=== PATIENT | female | born 1945 | race Caucasian/White ===

== ENCOUNTER 2017-07-09 22:10 | Emergency (ER) | payer MEDICARE, OTHER ==
[~2017-07-09] VITALS: Ht 170.2 cm; Wt 112.9 kg
[~2017-07-09 22:10] MED LIST: AMBIEN CR12.5 MG PO; BENICAR20 MG PO; BUMETANIDE2 MG PO; BUMEX2 MG PO; CARAFATE1 GM/10 ML PO; CYCLOBENZAPRINE5 MG PO; DEXILANT60 MG PO; FLAGYL250 MG PO; K-DUR20 ME2 PO; LIDOCAINE1 EA; LIPITOR40 MG PO; LOPRESSOR25 MG PO; METOPROLOL TART50 MG PO; NEXIUM20 MG PO; NIFEDIPINE ER60 M1 PO; NITROGLYCERIN0.4 MG SL; NORCO 10MG-325MG1 EA PO; PHENERGAN SUPP25 MG PO; POTASSIUM CHLO20 ME1 PO; PRAVASTATIN SOD20 MG PO; PRAVASTATIN SOD40 MG PO; PROMETHAZINE HC25 M1 PO; REGLAN10 MG PO; SERTRALINE HCL100 MG PO; SOMA350 MG PO; TESSALON PERLE100 MG PO; TUSSIN100 MG/51 PO; TUSSINEX PO; ULTRAM50 MG PO; XANAX2 MG PO; Z EXFORGE PO; Z.0.CLONIDINE HCL0.3 PO; Z.0.NORCO 5-325 TA1 PO; Z.0.ZOLOFT100 MG PO; ZOLOFT100 MG PO; ZOLPIDEM TART6.25 MG; [UNRECOGNIZED DRUG - OTHER] PO; [UNRECOGNIZED DRUG - OTHER] PO; zanax
--- OUTSIDE RECORDS SUMMARY | 2017-07-09 22:12 | XMS REPORT ---
Author Author [facility] Address Unknown Phone Unavailable Care Team Providers Care Eap Counselor Name Role Phone STELLA COSTA Unavailable Unavailable Problems This patient has no known problems. Allergies, Adverse Reactions, Alerts This patient has no known allergies or adverse reactions. Medications This patient has no known medications. Results Test Description Test Time Test Comments Text Results Atomic Results Result Comments CHEST XRAY POST PROCEDURE [place] [id number] Patient Name: IVAN KENDALL MR #: [id number] : 1945 Age/Sex: 71/F Req #: [id number] [facility] Physician: Ordered by: NURY PEREZ MD Report #: [id number] Location: CT Room/Bed: Procedure: DX/CHEST XRAY POST PROCEDURE Exam Date: Exam Time: REPORT STATUS: Signed PROCEDURE: CHEST XRAY POST PROCEDURE COMPARISON: Same day at 11:07 am INDICATIONS: POST THORA FINDINGS: Stable left chest wall dual lead cardiac device. LUNGS: Limited by low lung volumes and slight rotation. Left mid lung atelectasis/ scaring unchanged. Slightly increased right lower lung field atelectasis. Possible trace right pleural effusion PLEURA: No significant effusions or pneumothorax. HEART T MEDIASTINUM: Enlarged by rotation and low lung volume. BONES T SOFT TISSUES: No acute findings. CONCLUSION: No visible pneumothorax. Slightly increased right lower lung field atelectasis. Dictated by: Moose Carrillo M.D. on 11/13/2016 at 14:10 Electronically approved by: Moose Carrillo M.D. on 11/13/2016 at 14:10 Dictated By: MOOSE CARRILLO MD 141 Transcribed By: NEL on 11/13/16 141 COPY TO: NURY PEREZ MD CHEST XRAY POST PROCEDURE [place] [address] Patient Name: IVAN KENDALL MR #: [id number] : 1945 Age/Sex: 71/F Req #: [id number] Adm Physician: Ordered by: NURY PEREZ MD Report #: [id number] Location: CT Room/Bed: Procedure: [id number] DX/CHEST XRAY POST PROCEDURE Exam Date: Exam Time: REPORT STATUS: Signed PROCEDURE: CHEST XRAY POST PROCEDURE COMPARISON: 09/30/2016 INDICATIONS: POST LUNG BIOPSY FINDINGS: Stable left chest wall dual lead cardiac device. LUNGS: Limited by low lung volumes and rotation. Left mid lung atelectasis/scaring unchanged. Minimal left basilar haziness, likely a small effusion or atelectasis. PLEURA: No significant effusions or pneumothorax. HEART T MEDIASTINUM: Enlarged by rotation and low lung volume. BONES T SOFT TISSUES: No acute findings. CONCLUSION: Status post lung biopsy. No visible pneumothorax. Dictated by: Moose Carrillo M.D. on 11/13/2016 at 11:58 Electronically approved by: Moose Carrillo M.D. on 11/13/2016 at 11:58 Dictated By: MOOSE CARRILLO MD 1158 Transcribed By: NEL on 11/13/16 1158 COPY TO: NURY PEREZ MD CT GUIDED BIOPSY/ASPIR/INJ/PURNIMA [place] [address] Patient Name: IVAN KENDALL MR #: [id number] : 1945 Age/Sex: 71/F Req #: [id number] [facility] Physician: Ordered by: STELLA COSTA MD Report #: [id number] Location: CT Room/Bed: Procedure: [id number] CT/CT GUIDED BIOPSY/ASPIR/INJ/PURNIMA Exam Date: 11/13/16 Exam Time: 1025 REPORT STATUS: Signed Date and Time: 11/13/2016 Procedure: CT-guided biopsy of left upper lobe nodule tuber machine operator: Dr. Perez Pre-operative diagnosis: Left upper lobe paramediastinal pulmonary nodule Post-operative diagnosis: Left upper lobe paramediastinal pulmonary nodule Conscious Sedation: Versed 0.5 mg. The patient's heart rate and pulse oximetry were continuously monitored by the interventional radiology nurse. Blood pressure was monitored at 5 minute intervals. Additional Medications: Lidocaine 1% for local anesthesia Fluoroscopy time: None DLP: 1856.83 mGy cm Contrast used: None Estimated blood loss: Minimal Specimens: Core biopsy specimens x5 Implants: None Complications: Small iatrogenic pneumothorax Blood products administered: None Condition at completion of procedure: Stable Disposition: Radiology holding area DISCUSSION: Informed consent for the procedure was obtained from the patient and documented in the medical record after discussion of risks and benefits. The patient was placed in the supine position on the CT couch. A marker grid was placed over the left upper chest. Cnc Service Engineer tomogram followed by limited CT of the chest confirmed a suitable percutaneous approach to the paramediastinal left upper lobe nodule. The overlying skin was marked then prepped and draped in standard sterile fashion. 1% lidocaine was infiltrated into the skin and subcutaneous tissues for local anesthesia. Then, under intermittent CT guidance, a 16- gauge needle guide was advanced to the periphery of the nodule. Subsequently, a total of 5 core biopsy specimens were obtained using an 18-gauge, 2 cm throw core biopsy apparatus. A specimen was submitted to cytopathology personnel for touch prep, and intralesional location was confirmed. At the conclusion of sampling the needle guide was removed with concomitant injection of Gelfoam slurry along the visceral pleural surface of the lung and within the biopsy tract. A sterile, occlusive dressing was applied. The patient tolerated the procedure well. A small iatrogenic pneumothorax was noted upon completion of the procedure. The patient remained hemodynamically stable and with adequate oxygen saturation throughout the procedure and in the immediate post procedure period. FINDINGS: Paramediastinal left lung nodule as described on comparison CT scan of the chest from October 06, 2016 IMPRESSION: Successful CT-guided core needle biopsy of a paramediastinal left upper lobe nodule. Small iatrogenic pneumothorax will be followed by serial chest radiographs. Signed by: Dr. Nury Perez M.D. on 11/13/2016 1:01 PM Dictated By: NURY PEREZ MD 1301 Transcribed By: ELVIRA on 11/13/16 1301 COPY TO: STELLA COSTA MD BIOPSY LUNG [place] [address] Patient Name: IVAN KENDALL MR #: [id number] : 1945 Age/Sex: 71/F Req #: [id number] Adm Physician: Ordered by: STELLA COSTA MD Report #: [id number] Location: CT Room/Bed: Procedure: [id number] IR/BIOPSY LUNG Exam Date: 11/13/16 Exam Time: 1025 REPORT STATUS: Signed Date and Time: 11/13/2016 Procedure: CT-guided biopsy of left upper lobe nodule tuber machine operator: Dr. Perez Pre-operative diagnosis: Left upper lobe paramediastinal pulmonary nodule Post-operative diagnosis: Left upper lobe paramediastinal pulmonary nodule Conscious Sedation: Versed 0.5 mg. The patient's heart rate and pulse oximetry were continuously monitored by the interventional radiology nurse. Blood pressure was monitored at 5 minute intervals. Additional Medications: Lidocaine 1% for local anesthesia Fluoroscopy time: None DLP: 1856.83 mGy cm Contrast used: None Estimated blood loss: Minimal Specimens: Core biopsy specimens x5 Implants: None Complications: Small iatrogenic pneumothorax Blood products administered: None Condition at completion of procedure: Stable Disposition: Radiology holding area DISCUSSION: Informed consent for the procedure was obtained from the patient and documented in the medical record after discussion of risks and benefits. The patient was placed in the supine position on the CT couch. A marker grid was placed over the left upper chest. Cnc Service Engineer tomogram followed by limited CT of the chest confirmed a suitable percutaneous approach to the paramediastinal left upper lobe nodule. The overlying skin was marked then prepped and draped in standard sterile fashion. 1% lidocaine was infiltrated into the skin and subcutaneous tissues for local anesthesia. Then , under intermittent CT guidance, a 16-gauge needle guide was advanced to the periphery of the nodule. Subsequently, a total of 5 core biopsy specimens were obtained using an 18-gauge, 2 cm throw core biopsy apparatus. A specimen was submitted to cytopathology personnel for touch prep, and intralesional location was confirmed. At the conclusion of sampling the needle guide was removed with concomitant injection of Gelfoam slurry along the visceral pleural surface of the lung and within the biopsy tract. A sterile, occlusive dressing was applied. The patient tolerated the procedure well. A small iatrogenic pneumothorax was noted upon completion of the procedure. The patient remained hemodynamically stable and with adequate oxygen saturation throughout the procedure and in the immediate post procedure period. FINDINGS: Paramediastinal left lung nodule as described on comparison CT scan of the chest from October 06, 2016 IMPRESSION: Successful CT- guided core needle biopsy of a paramediastinal left upper lobe nodule. Small iatrogenic pneumothorax will be followed by serial chest radiographs. Signed by: Dr. Nury Perez M.D. on 11/13/2016 1:01 PM Dictated By: NURY PEREZ MD 1301 Transcribed By: ELVIRA on 11/13/16 1301 COPY TO: STELLA COSTA MD
[2017-07-09 22:50] LABS: BASOPHILS % 0.4 % (0.0-1.0); EOSINOPHILS % 0.4 % (0.0-6.0); HEMATOCRIT 45.3 % (34.2-44.1); HEMOGLOBIN 14.7 g/dL (12.0-16.0); LYMPHOCYTES % 9.9 % (18.0-39.1); MEAN CORPUSCULAR HEMOGLOBIN 28.2 pg (28-32); MEAN CORPUSCULAR HGB CONC 32.5 g/dL (31-35); MEAN CORPUSCULAR VOLUME 86.8 fL (81-99); MONOCYTES # (AUTO) 0.6 (0.2-0.8); MONOCYTES % 6.4 % (4.4-11.3); NEUTROPHILS # (AUTO) 8.1 (2.1-6.9); NEUTROPHILS % 82.3 % (38.7-80.0); PLATELET COUNT 231 x10e3/uL (140-360); RED BLOOD COUNT 5.22 x10e6/uL (3.6-5.1); RED CELL DISTRIBUTION WIDTH 14.4 % (11.7-14.4)
[2017-07-09 22:57] LABS: CLARITY,URINE HAZY (CLEAR); COLOR,URINE ORANGE (YELLOW); KETONES,URINE 1+ (NEGATIVE); LEUKOCYTE ESTERASE ,URINE 2+ (NEGATIVE); NITRITE,URINE POSITIVE (NEGATIVE); PROTEIN,URINE DIPSTICK 2+ (NEGATIVE); URINE UROBILINOGEN 4 mg/dL (0.2 - 1)
[2017-07-09 22:58] LABS: BILIRUBIN,URINE 2+ (NEGATIVE)
[2017-07-09 23:02] LABS: INR 1.08; PROTHROMBIN TIME 13.2 seconds (11.9-14.5)
[2017-07-09 23:03] LABS: PARTIAL THROMBOPLASTIN TIME 37.7 seconds (23.8-35.5)
[2017-07-09 23:10] LABS: BACTERIA,URINE RARE /HPF; EPITHELIAL CELLS,URINE FEW /LPF; TRANSITIONAL EPI CELLS,URINE RARE; WBC,URINE (MAN) 0-5 /HPF (0-5)
[2017-07-09 23:13] LABS: ALANINE AMINOTRANSFERASE 16 IU/L (0-55); ALBUMIN 3.4 g/dL (3.5-5.0); ALBUMIN/GLOBULIN RATIO 0.8 (0.8-2.0); ALKALINE PHOSPHATASE 73 IU/L (40-150); ANION GAP 14.5 mmol/L (8-16); BLOOD UREA NITROGEN 12 mg/dL (7-26); BUN/CREATININE RATIO 16 (6-25); CALCIUM 9.5 mg/dL (8.4-10.2); CARBON DIOXIDE 26 mmol/L (22-29); CHLORIDE 104 mmol/L (98-107); CREATINE KINASE 361 IU/L (29-168); CREATININE, SERUM 0.77 mg/dL (0.57-1.11); EST GLOMERULAR FILTRATION RATE > 60 ML/MIN (60-); GLUCOSE 96 mg/dL (74-118); MAGNESIUM 1.8 MG/DL (1.3-2.1); POTASSIUM 3.5 mmol/L (3.5-5.1); SODIUM 141 mmol/L (136-145)
[2017-07-09 23:19] LABS: B-TYPE NATRIURETIC PEPTIDE2 20.7 pg/mL (0-100)
--- NOTE | 2017-07-10 00:16 | Diagnostic Imaging Report ---
EXAM: CHEST SINGLE (PORTABLE), AP 1 view INDICATION: Shortness of breath COMPARISON: AP view of the chest at May 13, 2016 FINDINGS: LINES/TUBES: Stable position of left approach cardiac device. LUNGS: Stable bibasilar atelectasis/scarring. Lung nodules better seen by CT. PLEURA: No effusions or pneumothorax. HEART AND MEDIASTINUM: Normal size and contour. BONES AND SOFT TISSUES: No acute findings. IMPRESSION: No acute thoracic abnormality. Signed by: Dr. Jyotih Grant M.D. on 07/10/2017 12:12 AM
[2017-07-10] MEDS ORDERED: AZITHROMYCIN 500MG/NS 250 ML 250 ML IV SCH (00:30)
[2017-07-10] MEDS ORDERED: CEFTRIAXONE SOD 1 GM VIAL IV SCH (01:00)
[2017-07-10] MEDS ORDERED: METHYLPREDNISOLONE SOD SUCC 125 MG/2ML VIAL IV STA (01:33)
== END 2017-07-10 02:57 | disposition home or self-care (01) ==
LOC: ER 22:10
DX: R50.9 Fever, unspecified (principal); R05 Cough; J20.9 Acute bronchitis, unspecified; I51.9 Heart disease, unspecified; J44.9 Chronic obstructive pulmonary disease, unspecified; Z99.81 Dependence on supplemental oxygen; Z85.118 Personal history of other malignant neoplasm of bronchus and lung
CPT/HCPCS: 36415; 51700; 71045; 80053; 81001; 82550; 82553; 83605; 83735; 83880; 84484; 85025; 85610; 85730; 87040; 87071; 87086; 87205; 93005; 99284; J0456; J0696; J2930

== ENCOUNTER 2017-08-30 11:48 | Observation (INO) | payer MEDICARE ==
[~2017-08-30] VITALS: Ht 170.2 cm; Wt 83.9 kg
--- NOTE | 2017-08-30 13:40 | Diagnostic Imaging Report ---
History:Fall Comparison studies: None Technique: Axial images were obtained from the skull base to the vertex. Coronal and sagittal images reconstructed from the axial data. Intravenous contrast: None Findings: Scalp/skull: No abnormalities. Extra-axial spaces: No masses. No fluid collections. Brain sulci: Mildly prominent. Ventricles: Mild compensatory dilatation. No hydrocephalus. Parenchyma: Ill-defined, confluent hypodensities in the supratentorial white matter are small vessel ischemic changes. No masses, hemorrhage, acute or chronic cortical vascular insults. Sellar/suprasellar region: No abnormalities. Craniocervical junction: Patent foramen magnum. No Chiari one malformation. Incidental findings: Subtle atherosclerotic calcifications in the carotid siphons . Impression: No acute abnormalities. Chronic findings: 1. Mild generalized volume loss. 2. Moderate supratentorial white matter small vessel ischemic changes. Signed by: Dr. Otis Marques M.D. on 08/30/2017 1:36 PM
--- NOTE | 2017-08-30 13:41 | Diagnostic Imaging Report ---
PELVIS - 1 VIEW HISTORY: Fall, rule out fracture COMPARISON: None available. FINDINGS: A single view partially limits the evaluation. Bones: Some of the osseous structures are partially obscured by stool and overlying bowel gas. No acute displaced fracture, within the stated limitations. Joints: Minimal scattered degenerative changes. Soft tissues: The soft tissues appear unremarkable. IMPRESSION: No acute radiographic abnormality. Signed by: Dr. Agapito Bernard D.O., M.M.M. on 08/30/2017 1:37 PM
--- NOTE | 2017-08-30 13:42 | Diagnostic Imaging Report ---
History: Fall Comparison studies: None Technique: Axial images were obtained through the cervical region.. Coronal and sagittal images reconstructed from the axial data.. Intravenous contrast: None Findings: Fractures: None. Soft tissues: No gross abnormalities. Atlantoaxial articulation: Intact. Alignment: Straightening of the usual lordosis is probably positional. No scoliosis. Cervicomedullary junction: No abnormalities. The foramen magnum is patent. Vertebrae: No infection or neoplasm. Degenerative changes: Mild at the atlantoaxial articulation. Mildly degenerated disks at C4-5 and C5-6. Patent foramina and spinal canal. Incidental partially visualized left subclavian catheter. IMPRESSION: 1. No acute abnormalities. 2. Cannot adequately evaluate for ligament, spinal cord and or vascular abnormalities. 3. Mild degenerative changes Signed by: Dr. Otis Marques M.D. on 08/30/2017 1:39 PM
--- NOTE | 2017-08-30 13:56 | Diagnostic Imaging Report ---
CT CHEST WITHOUT CONTRAST HISTORY: fall, right side, strike right posterior ribs on bath tub, R/o fx COMPARISON: Images from CT of the chest October 01, 2016. TECHNIQUE: CT scan of the chest WITHOUT intravenous contrast, using standard protocol. The chest was scanned utilizing a multidetector helical scanner from the apex to the level of the adrenal glands. Coronal and sagittal reformats are provided. IV CONTRAST: None, which limits evaluation of the vascular structures, mediastinum and soft tissues. RADIATION DOSE: Total DLP: 1605.65 mGy*cm COMPLICATIONS: None FINDINGS: Lines/tubes: A left-sided implanted cardiac device. Lungs and Airways: Minimal to mild bilateral paraseptal and centrilobular emphysema. Bibasilar atelectasis versus scarring. Left mid anterior left upper lobe bronchiectasis with adjacent confluence anterior airspace opacity. Pleura: The pleural spaces are clear. Heart and mediastinum: A partially visualized inferior thyroid nodule, in retrospect the visualized portions appear similar to September 2016. Abdomen: Limited nonenhanced views of the upper abdomen: Stable 1.5 cm left hepatic fluid density, compatible with a cyst. Lymph nodes: No pathologically enlarged lymph node identified. Vessels: Unremarkable. Bones: Multiple posterior right rib fractures, a nondisplaced eighth rib fracture, one shaft width displacement of a posterior ninth rib fracture, a segmental 10th rib fracture and mildly displaced 11th rib fracture. Soft tissues: Mild anterior wedge compression deformity of L1 along with vertebral augmentation radiopaque cement and vertebral augmentation radial opaque cement within the adjacent L2 vertebral body. IMPRESSION: 1. Multiple posterior right-sided rib fractures, involving the 8th through 11th ribs. 2. Status post vertebral augmentation at L1 and L2. 3. Partially visualized thyroid nodule, this may be further characterize via follow-up nonemergent thyroid ultrasound. 4. Nonspecific left midlung bronchiectasis and complex fluid airspace opacity, differential considerations include postsurgical changes, scarring, and infection in the appropriate setting. If the patient is at high risk for primary malignancy or metastatic disease, recommend a follow-up CT of the chest in 3 months to assess for stability. Signed by: Dr. Agapito Bernard D.O., M.M.M. on 08/30/2017 1:52 PM
[2017-08-30] MEDS ORDERED: FENTANYL CITRATE/PF 100MCG/2 ML INJ IV ONE (14:00)
[2017-08-30] MEDS ORDERED: FENTANYL CITRATE/PF 100MCG/2 ML INJ IV PRN (14:30)
[2017-08-30 14:53] LABS: BASOPHILS # (AUTO) 0.1 (0.0-0.1); BASOPHILS % 0.4 % (0.0-1.0); EOSINOPHILS % 0.1 % (0.0-6.0); HEMATOCRIT 47.3 % (34.2-44.1); HEMOGLOBIN 15.6 g/dL (12.0-16.0); MEAN CORPUSCULAR HEMOGLOBIN 28.4 pg (28-32); MONOCYTES # (AUTO) 0.7 (0.2-0.8); MONOCYTES % 4.4 % (4.4-11.3); NEUTROPHILS % 88.4 % (38.7-80.0); PLATELET COUNT 269 x10e3/uL (140-360)
[2017-08-30 14:57] LABS: INR 1.05; PROTHROMBIN TIME 12.9 seconds (11.9-14.5)
[2017-08-30 14:58] LABS: PARTIAL THROMBOPLASTIN TIME 29.2 seconds (23.8-35.5)
[2017-08-30] MEDS: NICOTINE 14 MG/EA PATCH TOP SCH ×2 (15:00→16:58)
[2017-08-30 15:06] LABS: ALANINE AMINOTRANSFERASE 57 IU/L (0-55); ALBUMIN 3.8 g/dL (3.5-5.0); ALKALINE PHOSPHATASE 76 IU/L (40-150); ANION GAP 16.8 mmol/L (8-16); BLOOD UREA NITROGEN 13 mg/dL (7-26); BUN/CREATININE RATIO 18 (6-25); CALCIUM 9.2 mg/dL (8.4-10.2); CARBON DIOXIDE 24 mmol/L (22-29); CHLORIDE 104 mmol/L (98-107); CREATININE, SERUM 0.74 mg/dL (0.57-1.11); EST GLOMERULAR FILTRATION RATE > 60 ML/MIN (60-); GLUCOSE 120 mg/dL (74-118); POTASSIUM 3.8 mmol/L (3.5-5.1); SODIUM 141 mmol/L (136-145)
[2017-08-30] MEDS ORDERED: HYDROMORPHONE 1MG/1ML INJ IV PRN (15:30)
[2017-08-30 16:00] LABS: CREATINE KINASE MB 1.8 ng/mL (0-5.0)
[2017-08-30] MEDS ORDERED: HYDROCODONE/APAP 10MG-325MG TAB PO PRN (16:00)
[2017-08-30] MEDS ORDERED: TRAMADOL HCL 50 MG TAB PO PRN (16:00)
[2017-08-30] MEDS ORDERED: AZITHROMYCIN 500MG/NS 250 ML 250 ML IV SCH (16:00)
[2017-08-30] MEDS ORDERED: ZOLPIDEM TARTRATE 10 MG TAB PO PRN (16:00)
[2017-08-30 16:09] VITALS: BP 133/68
[2017-08-30] MEDS ORDERED: ALPRAZOLAM 1 MG TAB PO PRN (16:15)
[2017-08-30] MEDS ORDERED: SODIUM CHLORIDE 0.9% 250ML 250 ML ONE (16:39)
[2017-08-30] MEDS ORDERED: ONDANSETRON HCL INJ 2 MG/ML VIAL IV PRN (16:45)
[2017-08-30] MEDS: HYDROMORPHONE 1MG/1ML INJ IV PRN ×2 (16:58→21:03)
[2017-08-30] MEDS ORDERED: NON-FORMULARY MEDICATION (Alprazolam (Xanax) 2 MG) PO PRN (17:00)
[2017-08-30] MEDS ORDERED: NON-FORMULARY MEDICATION (Alprazolam (Xanax) 2 MG) PO SCH (17:00)
[2017-08-30] MEDS: PIPER-TAZ 3.375 GM 50 ML IV SCH (17:20)
--- NOTE | 2017-08-30 18:59 | Consultation ---
DATE OF CONSULTATION: August 30, 2017 PULMONARY/CRITICAL CARE CONSULTATION CHIEF COMPLAINT: Rib fractures. HISTORY OF PRESENT ILLNESS: The patient is a 72-year-old woman with a history of COPD and lung cancer. She was deemed unresectable because of her severe lung disease, and subsequently went for radiation therapy. She only tolerated 5-6 treatments before she felt ill from it and decided to abandon the therapy. She has not followed up with the oncologist at [place] since that time. She has had intermittent congestion and wheezing, and has required some antibiotics and Solu-Medrol intermittently. She uses oxygen at home. She fell backwards yesterday and injured her right posterior thorax. An x-ray showed multiple rib fractures. PAST MEDICAL HISTORY 1. Bronchogenic carcinoma. 2. Severe COPD. PAST SURGICAL HISTORY: Noncontributory. REVIEW OF SYSTEMS: The patient does not complain of fever. There is some headache. She has no sore throat or neck pain. She does complain of posterior back pain. She has no cough. She does not have congestion. She has no abdominal pain. She is not having leg swelling. She has no focal neurological complaints. ALLERGIES: THE PATIENT IS ALLERGIC TO LORAZEPAM AND MORPHINE. SOCIAL HISTORY: She was a smoker, but is not smoking now. She is not a drinker. FAMILY HISTORY: Noncontributory. PHYSICAL EXAMINATION VITAL SIGNS: The patient is afebrile. GENERAL: She has no headache. HEENT: Shows no facial swelling or erythema. The nasal mucosa is normal. The oropharynx is normal. LYMPHATIC: Shows no submandibular, cervical or supraclavicular adenopathy. NECK: Shows no JVD or thyromegaly. There is nuchal rigidity. CARDIAC: Reveals a regular rate and rhythm with normal S1 and S2. There are no murmurs or rubs. LUNGS: Auscultation of the lungs reveals decreased breath sounds on the right side. There is some bruising and tenderness in the posterior right thorax. ABDOMEN: Soft and nontender. There is no rebound or guarding. EXTREMITIES: Shows no leg edema or calf tenderness. There is no cyanosis or clubbing. SKIN: Shows no rashes. NEUROLOGIC: Shows no focal abnormalities. IMPRESSION 1. Traumatic rib fractures in the posterior right thorax. 2. Pneumonia with sepsis. 3. Chronic obstructive pulmonary disease. 4. Staged II bronchogenic carcinoma. PLAN 1. The patient received IV antibiotics. 2. Sputum culture and urine antigen for legionella. 3. Pain control. If the patient does decide to consider therapy for lung cancer, again, will consult oncology. Job#: [id number] RI
[2017-08-30] MEDS: SERTRALINE HCL 100 MG TAB PO SCH ×2 (19:02→19:28)
[2017-08-30] MEDS: METOPROLOL TARTRATE 50 MG TAB PO SCH ×2 (19:02→19:28)
[2017-08-30 19:36] VITALS: BP 126/86
[2017-08-30 19:51] VITALS: BP 126/86
[2017-08-30 20:10] VITALS: BP 124/83
[2017-08-30 20:30] LABS: CLARITY,URINE HAZY (CLEAR); COLOR,URINE YELLOW (YELLOW)
[2017-08-30 20:31] LABS: BILIRUBIN,URINE NEGATIVE (NEGATIVE); KETONES,URINE NEGATIVE (NEGATIVE); LEUKOCYTE ESTERASE ,URINE NEGATIVE (NEGATIVE); NITRITE,URINE NEGATIVE (NEGATIVE); PROTEIN,URINE DIPSTICK TRACE (NEGATIVE); URINE UROBILINOGEN 0.2 mg/dL (0.2 - 1)
[2017-08-30 20:39] LABS: EPITHELIAL CELLS,URINE MANY /LPF
[2017-08-30 20:41] LABS: BACTERIA,URINE FEW /HPF; HYALINE CASTS 0-1 (0-1); RBC,URINE 0-5 /HPF (0-5); TRANSITIONAL EPI CELLS,URINE FEW; WBC,URINE (MAN) 0-5 /HPF (0-5)
[2017-08-30] MEDS: PROMETHAZINE 12.5MG/ NACL 0.9% 12.5 MG/50 ML BAG IV PRN (20:45)
[2017-08-30] MEDS ORDERED: PRAVASTATIN 20 MG TAB PO SCH (21:00)
[2017-08-30] MEDS ORDERED: NON-FORMULARY MEDICATION (Pravastatin Sodium 40 MG) PO SCH (21:00)
[2017-08-30 21:38] VITALS: BP 124/83
[2017-08-30 23:40] VITALS: BP 110/55
[2017-08-31] MEDS: PIPER-TAZ 3.375 GM 50 ML IV SCH ×2 (02:00→09:56)
[2017-08-31] MEDS: HYDROMORPHONE 1MG/1ML INJ IV PRN ×2 (02:13→10:22)
[2017-08-31] MEDS: PROMETHAZINE 12.5MG/ NACL 0.9% 12.5 MG/50 ML BAG IV PRN (02:17)
[2017-08-31] MEDS: CYCLOBENZAPRINE HCL 10 MG TAB PO PRN ×2 (03:20→08:36)
[2017-08-31 04:15] VITALS: BP 111/54
[2017-08-31 04:41] LABS: BASOPHILS % 0.2 % (0.0-1.0); HEMATOCRIT 44.1 % (34.2-44.1); HEMOGLOBIN 14.1 g/dL (12.0-16.0); LYMPHOCYTES # (AUTO) 0.8 (1.0-3.2); LYMPHOCYTES % 8.3 % (18.0-39.1); MEAN CORPUSCULAR HEMOGLOBIN 27.9 pg (28-32); MEAN CORPUSCULAR VOLUME 87.2 fL (81-99); MONOCYTES # (AUTO) 0.4 (0.2-0.8); MONOCYTES % 4.4 % (4.4-11.3); NEUTROPHILS # (AUTO) 8.7 (2.1-6.9); NEUTROPHILS % 86.7 % (38.7-80.0); PLATELET COUNT 225 x10e3/uL (140-360); RED BLOOD COUNT 5.06 x10e6/uL (3.6-5.1); RED CELL DISTRIBUTION WIDTH 15.1 % (11.7-14.4)
[2017-08-31 05:02] LABS: ALANINE AMINOTRANSFERASE 42 IU/L (0-55); ALBUMIN 3.5 g/dL (3.5-5.0); ALKALINE PHOSPHATASE 70 IU/L (40-150); ANION GAP 12.7 mmol/L (8-16); BLOOD UREA NITROGEN 13 mg/dL (7-26); BUN/CREATININE RATIO 19 (6-25); CALCIUM 8.9 mg/dL (8.4-10.2); CARBON DIOXIDE 27 mmol/L (22-29); CHLORIDE 103 mmol/L (98-107); EST GLOMERULAR FILTRATION RATE > 60 ML/MIN (60-); GLUCOSE 119 mg/dL (74-118); POTASSIUM 3.7 mmol/L (3.5-5.1); SODIUM 139 mmol/L (136-145)
[2017-08-31 08:00] VITALS: BP 136/59
[2017-08-31] MEDS ORDERED: NIFEDIPINE CR 30 MG TAB PO SCH (09:00)
[2017-08-31] MEDS ORDERED: NON-FORMULARY MEDICATION (Nifedipine (Nifedipine Er) 60 MG) PO SCH (09:00)
[2017-08-31 09:08] VITALS: BP 136/59
[2017-08-31] MEDS: NICOTINE 14 MG/EA PATCH TOP SCH (09:56)
[2017-08-31] MEDS ORDERED: LEVAQUIN500 MG PO (10:03)
--- NOTE | 2017-08-31 10:17 | Discharge Summary ---
FINAL DIAGNOSIS: Multiple right-sided rib fractures due to mechanical fall. SECONDARY DIAGNOSES 1. Chronic obstructive pulmonary disease exacerbation. 2. Chronic respiratory failure, on home oxygen due to severe chronic obstructive pulmonary disease. 3. Lung cancer. 4. Hypertension. 5. Colon cancer, in remission. CONSULTANTS: Dr. Sethi, manager file. PROCEDURES/STUDIES PERFORMED: Computerized tomography of the cervical spine and chest and brain. HISTORY: Per [facility]. HOSPITAL COURSE: The patient was admitted for pain control. Her pain was better. Therefore, was deemed stable for discharge home. Initially, she had some leukocytosis. However, the patient is afebrile. This is likely reactive. She did receive some empiric antibiotic. Will go ahead and stop. As far as her COPD exacerbation, it is mild. However, due to underlying disease, will go ahead and send her home on Levaquin for 5 days and a Medrol Dosepak. At this time, the patient still does not want treatment for her lung cancer. I have discussed this case with Dr. Sethi. CONDITION ON DISCHARGE: Stable. DISCHARGE MEDICATIONS: Please see medication reconciliation form. KRISTINA SANCHEZ M.D. Job#: [id number] [place]
== END 2017-08-31 11:09 | disposition home or self-care (01) ==
LOC: ER 11:48 → ERHOLD 14:36 → IMCU 15:47
PROVIDERS: ADMIT Internal Medicine; ATTEND Internal Medicine
DX: S22.41XA Multiple fractures of ribs, right side, initial encounter for closed fracture (principal); W18.2XXA Fall in (into) shower or empty bathtub, initial encounter; Y93.89 Activity, other specified; Y92.012 Bathroom of single-family (private) house as the place of occurrence of the external cause; I11.0 Hypertensive heart disease with heart failure; I50.9 Heart failure, unspecified; E78.5 Hyperlipidemia, unspecified; G89.29 Other chronic pain; Z85.038 Personal history of other malignant neoplasm of large intestine; Z72.0 Tobacco use; S30.1XXA Contusion of abdominal wall, initial encounter; J18.9 Pneumonia, unspecified organism; C34.90 Malignant neoplasm of unspecified part of unspecified bronchus or lung; J44.1 Chronic obstructive pulmonary disease with (acute) exacerbation; Z99.81 Dependence on supplemental oxygen; J96.10 Chronic respiratory failure, unspecified whether with hypoxia or hypercapnia
CPT/HCPCS: 36415 ×2; 70450; 71250; 72125; 72170; 80053 ×2; 81001; 82550; 82553; 84484; 85025 ×2; 85610; 85730; 87449; 93005; 96374; 99284; G0378 ×2; J0456; J1170 ×2; J2405; J2543 ×2; J2550 ×2; J7050

== ENCOUNTER 2017-09-08 16:04 | Emergency (ER) | payer OTHER, MEDICARE ==
[~2017-09-08] VITALS: Ht 322.6 cm; Wt 83.9 kg
[~2017-09-08 16:04] MED LIST changes: +LEVAQUIN500 MG PO
[2017-09-08 16:33] LABS: BASOPHILS % 0.4 % (0.0-1.0); EOSINOPHILS # (AUTO) 0.2 (0.0-0.4); EOSINOPHILS % 2.1 % (0.0-6.0); HEMATOCRIT 41.4 % (34.2-44.1); HEMOGLOBIN 13.4 g/dL (12.0-16.0); LYMPHOCYTES # (AUTO) 1.2 (1.0-3.2); MEAN CORPUSCULAR HEMOGLOBIN 28.1 pg (28-32); MEAN CORPUSCULAR HGB CONC 32.4 g/dL (31-35); MEAN CORPUSCULAR VOLUME 86.8 fL (81-99); MONOCYTES # (AUTO) 0.7 (0.2-0.8); MONOCYTES % 7.9 % (4.4-11.3); NEUTROPHILS % 75.8 % (38.7-80.0); PLATELET COUNT 325 x10e3/uL (140-360); RED BLOOD COUNT 4.77 x10e6/uL (3.6-5.1); RED CELL DISTRIBUTION WIDTH 14.9 % (11.7-14.4)
[2017-09-08] MEDS ORDERED: HYDROMORPHONE 1MG/1ML INJ IV ONE ×2 (16:45→18:30)
[2017-09-08 16:48] LABS: ALANINE AMINOTRANSFERASE 21 IU/L (0-55); ALBUMIN 2.9 g/dL (3.5-5.0); ALBUMIN/GLOBULIN RATIO 0.7 (0.8-2.0); ALKALINE PHOSPHATASE 82 IU/L (40-150); ANION GAP 12.7 mmol/L (8-16); BLOOD UREA NITROGEN 11 mg/dL (7-26); BUN/CREATININE RATIO 14 (6-25); CALCIUM 9.2 mg/dL (8.4-10.2); CARBON DIOXIDE 28 mmol/L (22-29); CHLORIDE 102 mmol/L (98-107); CREATINE KINASE 47 IU/L (29-168); CREATININE, SERUM 0.77 mg/dL (0.57-1.11); EST GLOMERULAR FILTRATION RATE > 60 ML/MIN (60-); GLUCOSE 100 mg/dL (74-118); POTASSIUM 3.7 mmol/L (3.5-5.1); SODIUM 139 mmol/L (136-145)
[2017-09-08 16:53] LABS: CLARITY,URINE SL CLOUDY (CLEAR); COLOR,URINE STRAW (YELLOW); LEUKOCYTE ESTERASE ,URINE TRACE (NEGATIVE); NITRITE,URINE POSITIVE (NEGATIVE)
[2017-09-08 16:54] LABS: BILIRUBIN,URINE 2+ (NEGATIVE); KETONES,URINE TRACE (NEGATIVE); PROTEIN,URINE DIPSTICK 2+ (NEGATIVE); URINE UROBILINOGEN 1 mg/dL (0.2 - 1)
[2017-09-08 17:10] LABS: AMORPHOUS SEDIMENT,URINE FEW (FEW); BACTERIA,URINE MODERATE /HPF; EPITHELIAL CELLS,URINE MANY /LPF; TRANSITIONAL EPI CELLS,URINE MODERATE
--- NOTE | 2017-09-08 17:32 | Diagnostic Imaging Report ---
PROCEDURE:X-RAY LEFT KNEE, THREE OR MORE VIEWS COMPARISON:None. INDICATIONS:FALL FINDINGS: There are no fractures, subluxations, lytic or blastic lesions. Tricompartmental degenerative changes. No suprapatellar joint effusion. Soft tissues are unremarkable. CONCLUSION: No evidence of acute fracture or dislocation of the left knee. Tricompartmental degenerative changes. Dictated by: Moose Pires M.D. on 09/08/2017 at 17:37 Electronically approved by: Moose Pires M.D. on 09/08/2017 at 17:37
--- NOTE | 2017-09-08 17:35 | Diagnostic Imaging Report ---
PROCEDURE:HIP RIGHT 2-3 VW (+/- PELVIS) COMPARISON:08/30/17 INDICATIONS:FALL FINDINGS: Limited by body habitus. No definite evidence of acute displaced fracture or dislocation of the right hip. Left hip is unremarkable. Soft tissues are unremarkable. CONCLUSION: No definite evidence of acute displaced fracture or dislocation of the right hip. If there is high clinical concern for fracture, consider obtaining CT for better evaluation. Dictated by: Moose Pires M.D. on 09/08/2017 at 17:41 Electronically approved by: Moose Pires M.D. on 09/08/2017 at 17:41
--- NOTE | 2017-09-08 17:43 | Diagnostic Imaging Report ---
History:Fall Comparison studies:None Technique: Axial images were obtained from the skull base to the vertex. Coronal and sagittal images reconstructed from the axial data. Intravenous contrast: None Findings: Scalp/skull: No abnormalities. Extra-axial spaces: No masses. No fluid collections. Brain sulci: Mildly prominent. Ventricles: Mild compensatory dilatation. No hydrocephalus. Parenchyma: Scattered small hypodensities in the supratentorial white matter are small vessel ischemic changes. Small lacunar infarct at the left caudate head. No masses, hemorrhage, acute or chronic cortical vascular insults. Sellar/suprasellar region: No abnormalities. Craniocervical junction: Patent foramen magnum. No Chiari one malformation. Incidental findings: Atherosclerotic calcifications in the carotid siphons . Bilateral cataract surgery changes. Impression: No acute abnormalities. Chronic findings: 1. Mild generalized volume loss. 2. Mild supratentorial white matter small vessel ischemic changes. Signed by: DR Chandrakant Spivey M.D. on 09/08/2017 5:39 PM
[2017-09-08] MEDS ORDERED: CEFTRIAXONE SOD 1 GM VIAL IV ONE (17:45)
[2017-09-08] MEDS ORDERED: SODIUM CHLORIDE 0.9% 1000ML 1,000 ML IV STA (18:15)
[2017-09-08 19:55] VITALS: BP 106/65
== END 2017-09-08 19:59 | disposition home or self-care (01) ==
LOC: ER 16:04
DX: S70.02XA Contusion of left hip, initial encounter (principal); S80.02XA Contusion of left knee, initial encounter; S22.41XA Multiple fractures of ribs, right side, initial encounter for closed fracture; W18.39XA Other fall on same level, initial encounter; Y92.008 Other place in unspecified non-institutional (private) residence as the place of occurrence of the external cause; N30.90 Cystitis, unspecified without hematuria; I10 Essential (primary) hypertension; J44.9 Chronic obstructive pulmonary disease, unspecified; I50.9 Heart failure, unspecified; Z85.038 Personal history of other malignant neoplasm of large intestine
CPT/HCPCS: 36415; 70450; 73502; 73562; 80053; 81001; 82550; 82553; 84484; 85025; 93005; 99284; J0696; J1170

== ENCOUNTER 2018-10-07 13:51 | Emergency (ER) | payer MEDICARE, OTHER ==
[~2018-10-07] VITALS: Ht 322.6 cm; Wt 83.9 kg
--- NOTE | 2018-10-07 15:50 | Diagnostic Imaging Report ---
Chest, 1 view, 10/07/2018. History: Shortness of breath. Comparison: CT chest 08/30/2017. Findings: The cardiomediastinal silhouette and pulmonary vasculature are within normal limits for a portable exam. There is elevation of the right hemidiaphragm. Linear opacities are present in the right mid and lower lung. The left lung is clear. Left subclavian dual-lead pacer is present. There are no acute osseous or soft tissue abnormalities. Impression: Right upper and lower lobe atelectasis versus scarring. Signed by: Saeed Kapoor on 10/07/2018 3:47 PM
--- NOTE | 2018-10-07 15:51 | Diagnostic Imaging Report ---
Left knee, 3 views. History: Left knee trauma. Findings: The soft tissues are normal. The bones are diffusely osteopenic. There is no evidence of fracture or dislocation. There are no lytic or sclerotic lesions. There is moderate diffuse joint space narrowing and osteophytosis. IMPRESSION: Moderate left knee DJD. Signed by: Saeed Kapoor on 10/07/2018 3:48 PM
[2018-10-07 16:15] LABS: BASOPHILS # (AUTO) 0.1 (0.0-0.1); BASOPHILS % 0.6 % (0.0-1.0); EOSINOPHILS # (AUTO) 0.1 (0.0-0.4); EOSINOPHILS % 0.8 % (0.0-6.0); HEMATOCRIT 50.6 % (34.2-44.1); HEMOGLOBIN 16.7 g/dL (12.0-16.0); LYMPHOCYTES # (AUTO) 1.6 (1.0-3.2); LYMPHOCYTES % 18.5 % (18.0-39.1); MEAN CORPUSCULAR HEMOGLOBIN 28.8 pg (28-32); MEAN CORPUSCULAR VOLUME 87.2 fL (81-99); MONOCYTES # (AUTO) 0.4 (0.2-0.8); MONOCYTES % 5.1 % (4.4-11.3); NEUTROPHILS # (AUTO) 6.3 (2.1-6.9); NEUTROPHILS % 74.6 % (38.7-80.0); PLATELET COUNT 229 x10e3/uL (140-360); RED CELL DISTRIBUTION WIDTH 13.7 % (11.7-14.4)
[2018-10-07 16:20] LABS: BILIRUBIN,URINE SMALL (NEGATIVE); CLARITY,URINE SL CLOUDY (CLEAR); COLOR,URINE YELLOW (YELLOW); KETONES,URINE NEGATIVE (NEGATIVE); LEUKOCYTE ESTERASE ,URINE NEGATIVE (NEGATIVE); NITRITE,URINE NEGATIVE (NEGATIVE); PROTEIN,URINE DIPSTICK TRACE (NEGATIVE); URINE UROBILINOGEN 0.2 mg/dL (0.2 - 1)
[2018-10-07 16:24] LABS: INR 0.95; PARTIAL THROMBOPLASTIN TIME 32.2 seconds (23.8-35.5); PROTHROMBIN TIME 13.2 seconds (11.9-14.5)
[2018-10-07 16:28] LABS: BACTERIA,URINE MODERATE /HPF; EPITHELIAL CELLS,URINE FEW /LPF
[2018-10-07 16:37] LABS: ALANINE AMINOTRANSFERASE 8 IU/L (0-55); ALBUMIN 3.9 g/dL (3.5-5.0); ALBUMIN/GLOBULIN RATIO 1.3 (0.8-2.0); ALKALINE PHOSPHATASE 65 IU/L (40-150); ANION GAP 13.7 mmol/L (8-16); BLOOD UREA NITROGEN 15 mg/dL (7-26); BUN/CREATININE RATIO 26 (6-25); CALCIUM 9.6 mg/dL (8.4-10.2); CARBON DIOXIDE 28 mmol/L (22-29); CHLORIDE 102 mmol/L (98-107); CREATINE KINASE 19 IU/L (29-168); CREATININE, SERUM 0.58 mg/dL (0.57-1.11); EST GLOMERULAR FILTRATION RATE > 60 ML/MIN (60-); GLUCOSE 89 mg/dL (74-118); POTASSIUM 3.7 mmol/L (3.5-5.1); SODIUM 140 mmol/L (136-145)
--- NOTE | 2018-10-07 17:41 | NUR ---
NOTIFIED [facility] FOR PATIENT TRANSPORT VIA STRETCHER TO D/C TO HOME RESIDENCE, SPOKE WITH
== END 2018-10-07 18:49 | disposition home or self-care (01) ==
LOC: ER 13:51
DX: R53.1 Weakness (principal); M17.32 Unilateral post-traumatic osteoarthritis, left knee; T14.90XS Injury, unspecified, sequela; X58.XXXS Exposure to other specified factors, sequela; W19.XXXS Unspecified fall, sequela; C34.90 Malignant neoplasm of unspecified part of unspecified bronchus or lung; R64 Cachexia; Z68.1 Body mass index [BMI] 19.9 or less, adult; Z51.5 Encounter for palliative care; I11.0 Hypertensive heart disease with heart failure; I50.9 Heart failure, unspecified; J44.9 Chronic obstructive pulmonary disease, unspecified; E78.5 Hyperlipidemia, unspecified; I44.0 Atrioventricular block, first degree; I45.10 Unspecified right bundle-branch block
CPT/HCPCS: 36415; 71045; 80053; 81001; 82550; 82553; 84484; 85025; 85610; 85730; 93005; 99284

== ENCOUNTER 2019-01-05 15:47 | Observation (INO) | payer MEDICARE ==
[~2019-01-05] VITALS: Ht 165.1 cm; Wt 83.9 kg
[2019-01-05 16:46] LABS: BASOPHILS % 0.4 % (0.0-1.0); EOSINOPHILS # (AUTO) 0.1 (0.0-0.4); EOSINOPHILS % 1.1 % (0.0-6.0); HEMATOCRIT 45.3 % (34.2-44.1); HEMOGLOBIN 14.5 g/dL (12.0-16.0); LYMPHOCYTES # (AUTO) 1.4 (1.0-3.2); LYMPHOCYTES % 20.3 % (18.0-39.1); MEAN CORPUSCULAR HEMOGLOBIN 27.7 pg (28-32); MEAN CORPUSCULAR VOLUME 86.6 fL (81-99); MONOCYTES # (AUTO) 0.4 (0.2-0.8); MONOCYTES % 5.7 % (4.4-11.3); NEUTROPHILS # (AUTO) 5.1 (2.1-6.9); NEUTROPHILS % 72.2 % (38.7-80.0); PLATELET COUNT 235 x10e3/uL (140-360); RED BLOOD COUNT 5.23 x10e6/uL (3.6-5.1); RED CELL DISTRIBUTION WIDTH 14.3 % (11.7-14.4)
[2019-01-05 16:51] LABS: INR 0.95; PROTHROMBIN TIME 13.2 seconds (11.9-14.5)
[2019-01-05 16:52] LABS: PARTIAL THROMBOPLASTIN TIME 30.9 seconds (23.8-35.5)
[2019-01-05 16:59] LABS: ALANINE AMINOTRANSFERASE 11 IU/L (0-55); ALBUMIN 3.4 g/dL (3.5-5.0); ALKALINE PHOSPHATASE 57 IU/L (40-150); ANION GAP 12.2 mmol/L (8-16); BLOOD UREA NITROGEN 12 mg/dL (7-26); BUN/CREATININE RATIO 18 (6-25); CALCIUM 9.2 mg/dL (8.4-10.2); CARBON DIOXIDE 31 mmol/L (22-29); CHLORIDE 101 mmol/L (98-107); CREATINE KINASE 28 IU/L (29-168); CREATININE, SERUM 0.65 mg/dL (0.57-1.11); EST GLOMERULAR FILTRATION RATE > 60 ML/MIN (60-); GLUCOSE 83 mg/dL (74-118); POTASSIUM 3.2 mmol/L (3.5-5.1); SODIUM 141 mmol/L (136-145)
[2019-01-05] MEDS ORDERED: ALBUTEROL SULF 0.083% NEB SOLN 3 ML NEB NEB PRN (17:15)
[2019-01-05] MEDS ORDERED: IPRATROPIUM BROMIDE 0.02% 2.5 ML NEB NEB PRN (17:15)
[2019-01-05] MEDS ORDERED: LEVOFLOXACIN 500MG/D5W 100ML IV SCH (17:15)
--- NOTE | 2019-01-05 17:33 | Diagnostic Imaging Report ---
KNEE LEFT THREE VIEWS - 3 views HISTORY: Pain COMPARISON: 10/07/2018 FINDINGS: Bones: No acute displaced fracture. Osseous alignment is within normal limits. Joints: No malalignment. Tricompartmental degenerative changes. Soft tissues: The soft tissues appear unremarkable. IMPRESSION: No acute radiographic abnormality. Tricompartmental degenerative changes. Signed by: Dr. Moose Pires MD on 01/05/2019 5:29 PM
--- NOTE | 2019-01-05 17:35 | Diagnostic Imaging Report ---
EXAMINATION: CHEST SINGLE (PORTABLE) INDICATION: ^ERMD ORDER ^Y COMPARISON: 10/07/2018 FINDINGS: AP view TUBES and LINES: Stable dual-lead left chest wall cardiac device. LUNGS: Limited by rotation and body habitus. Pulmonary vascular congestion. Unchanged right midlung linear opacity, likely atelectasis/scarring. PLEURA: No visible pneumothorax. Small right pleural effusion. HEART AND MEDIASTINUM: The cardiomediastinal silhouette is partially obscured and enlarged. BONES AND SOFT TISSUES: No acute osseous lesion. Soft tissues are unremarkable. UPPER ABDOMEN: No free air under the diaphragm. Again seen elevation of the right hemidiaphragm. IMPRESSION: Unchanged elevation of right hemidiaphragm with right lung volume loss. Enlarged cardiomediastinal silhouette and pulmonary vascular congestion. Small right pleural effusion. Unchanged linear right midlung opacity, likely atelectasis/scarring. Signed by: Dr. Moose Pires MD on 01/05/2019 5:32 PM
[2019-01-05] MEDS ORDERED: HYDROCODONE/APAP 5MG-325MG TAB PO PRN (19:30)
[2019-01-05] MEDS ORDERED: MORPHINE SULFATE 2 MG/ML SYR 1ML IV PRN (19:30)
[2019-01-05 20:00] LABS: BILIRUBIN,URINE SMALL (NEGATIVE); CLARITY,URINE CLOUDY (CLEAR); COLOR,URINE YELLOW (YELLOW); KETONES,URINE NEGATIVE (NEGATIVE); LEUKOCYTE ESTERASE ,URINE SMALL (NEGATIVE); NITRITE,URINE NEGATIVE (NEGATIVE); PROTEIN,URINE DIPSTICK TRACE (NEGATIVE); URINE UROBILINOGEN 1 mg/dL (0.2 - 1)
[2019-01-05 20:12] LABS: BACTERIA,URINE MANY /HPF; RBC,URINE 0-5 /HPF (0-5); WBC,URINE (MAN) 0-5 /HPF (0-5)
[2019-01-05] MEDS: HYDROCODONE/APAP 10MG-325MG TAB PO PRN (20:24)
[2019-01-05 21:18] VITALS: BP 123/70
[2019-01-05] MEDS: METHYLPREDNISOLONE SOD SUCC 40 MG/ML VIAL 1ML IV SCH (22:00)
[2019-01-05] MEDS ORDERED: BUMETANIDE2 MG PO (22:30)
[2019-01-05] MEDS ORDERED: POTASSIUM CHLO20 ME1 PO (22:31)
[2019-01-05] MEDS ORDERED: BACLOFEN10 MG PO (22:34)
[2019-01-05] MEDS ORDERED: AMBIEN10 MG PO (22:34)
[2019-01-05] MEDS ORDERED: ALPRAZOLAM 1 MG TAB PO PRN (23:15)
[2019-01-05] MEDS ORDERED: BACLOFEN 10 MG TAB PO PRN (23:15)
[2019-01-05] MEDS: ONDANSETRON HCL INJ 2MG/ML 2ML 2 MG/ML VIAL IV PRN (23:35)
[2019-01-05 23:40] VITALS: BP 95/51
[2019-01-06] MEDS: HYDROCODONE/APAP 10MG-325MG TAB PO PRN ×3 (03:31→15:00)
[2019-01-06 05:09] VITALS: BP 111/57
[2019-01-06 05:47] LABS: BASOPHILS % 0.2 % (0.0-1.0); HEMATOCRIT 42.6 % (34.2-44.1); HEMOGLOBIN 14.1 g/dL (12.0-16.0); LYMPHOCYTES # (AUTO) 0.6 (1.0-3.2); LYMPHOCYTES % 13.6 % (18.0-39.1); MEAN CORPUSCULAR HEMOGLOBIN 28.4 pg (28-32); MEAN CORPUSCULAR HGB CONC 33.1 g/dL (31-35); MEAN CORPUSCULAR VOLUME 85.9 fL (81-99); MONOCYTES % 0.9 % (4.4-11.3); NEUTROPHILS # (AUTO) 3.9 (2.1-6.9); NEUTROPHILS % 84.9 % (38.7-80.0); PLATELET COUNT 204 x10e3/uL (140-360); RED BLOOD COUNT 4.96 x10e6/uL (3.6-5.1); RED CELL DISTRIBUTION WIDTH 14.4 % (11.7-14.4)
[2019-01-06 06:08] LABS: ANION GAP 12.9 mmol/L (8-16); BLOOD UREA NITROGEN 11 mg/dL (7-26); BUN/CREATININE RATIO 18 (6-25); CALCIUM 9.2 mg/dL (8.4-10.2); CARBON DIOXIDE 26 mmol/L (22-29); CHLORIDE 101 mmol/L (98-107); CREATINE KINASE MB 0.9 ng/mL (0-5.0); CREATININE, SERUM 0.62 mg/dL (0.57-1.11); EST GLOMERULAR FILTRATION RATE > 60 ML/MIN (60-); GLUCOSE 127 mg/dL (74-118); SODIUM 136 mmol/L (136-145)
[2019-01-06 06:11] LABS: POTASSIUM 3.9 mmol/L (3.5-5.1)
[2019-01-06] MEDS: METHYLPREDNISOLONE SOD SUCC 40 MG/ML VIAL 1ML IV SCH (06:18)
[2019-01-06] MEDS ORDERED: OXYCODONE HCL 20 MG TAB CR PO PRN (08:00)
[2019-01-06] MEDS ORDERED: MAGNESIUM HYDROXIDE 30 ML UDC PO PRN (08:15)
--- NOTE | 2019-01-06 08:59 | Pre Op History & Physical ---
HISTORY OF PRESENT ILLNESS: The patient is a 73-year-old woman. She has a history of stage IV bronchogenic carcinoma. She has been on hospice. She has been receiving OxyContin 10-30 mg a day as well as Xanax and baclofen. She comes in complaining of a "fluid in her lungs." She does not have fever or chest pain. She does have some nonproductive cough. She complains of pain in her knee and back. PAST SURGICAL HISTORY: 1. Hysterectomy. 2. Status post tonsillectomy. 3. Status post pacemaker in 2013. PAST MEDICAL HISTORY: 1. Stage IV lung cancer. 2. Chronic back pain. 3. Colon cancer. ALLERGIES: THE PATIENT REPORTS AN ALLERGY TO MORPHINE AND TRAMADOL. FAMILY HISTORY: Family history is noncontributory. SOCIAL HISTORY: The patient is not actively smoking. She is not an active drinker. REVIEW OF SYSTEMS: The patient is not having fevers. She does not complain of headache or neck pain. She has no chest pain. She is not having any phlegm production. She does report some shortness of breath. She has no nausea or vomiting. She does report some lower back pain as well as some knee pain. PHYSICAL EXAMINATION: VITAL SIGNS: The patient is afebrile. The blood pressure is 111/57, saturation is 98%. The pulse is 67 and respiratory rate is 18. HEENT: Shows no facial swelling or erythema. CARDIAC: Reveals regular rate and rhythm with normal S1 and S2. There are no murmurs or rubs. LUNGS: Auscultation of lungs shows decreased breath sounds at the bases. There is no wheezing. ABDOMEN: Soft, nontender. There is no rebound or guarding. EXTREMITIES: Show no leg edema or calf tenderness. There is no cyanosis or clubbing. SKIN: Shows no rashes. NEUROLOGICAL: Shows no focal abnormalities. LABORATORY DATA: White blood cell count is 4.6 and hemoglobin is 14.1. The platelet count is 204. The BUN to creatinine ratio is 11:0.62. The other electrolytes are within normal limits. RADIOGRAPHIC DATA: Knee x-ray shows degenerative changes. Chest x-ray shows elevated right hemidiaphragm with some volume loss in the right lung. She has a small right pleural effusion. IMPRESSION: 1. Bronchogenic carcinoma. 2. Dyspnea. 3. Chronic pain in the back and knee. 4. Degenerative arthritis of the knee. PLAN: 1. Continue current pain medications. 2. CT scan of the chest. 3. Oncology consultation. MD RAMSES Brown/RAMESHL /[id number]
[2019-01-06] MEDS: NIFEDIPINE CR 30 MG TAB PO SCH (09:00)
[2019-01-06] MEDS: METOPROLOL TARTRATE 50 MG TAB PO SCH ×2 (09:00→17:31)
[2019-01-06] MEDS: SERTRALINE HCL 100 MG TAB PO SCH ×2 (09:00→17:31)
[2019-01-06] MEDS: SENNA-S TABLET PO SCH (09:00)
[2019-01-06] MEDS: FAMOTIDINE 20 MG/2 ML VIAL IV SCH ×2 (09:00→17:31)
[2019-01-06] MEDS: POTASSIUM CHLORIDE 20 MEQ TAB CR PO SCH (09:00)
[2019-01-06] MEDS: ALPRAZOLAM 1 MG TAB PO SCH ×2 (09:00→17:31)
[2019-01-06 10:26] VITALS: BP 117/57
[2019-01-06 11:55] VITALS: BP 117/68
--- NOTE | 2019-01-06 13:05 | NUR ---
TRANSPORTATION IS AT THE BEDSIDE TO TAKE PT FOR CT SCAN
--- NOTE | 2019-01-06 13:08 | NUR ---
SPOKE WITH MELODIE TOM AT [facility] [phone], SHE STATES THEY ARE DISCHARGING THE PT NOT REVOKING SERVICES, SHE STATES THEY WILL NOT ACCEPT THE PATIENT BACK, SHE STATES THE MEDICATION REQUESTS THEY WERE ASKED FOR WERE NOT ABLE TO BE MET AND THAT THE DAUGHTER JASPREET RILEY HAD TO APPROVE ALL MEDICATION REQUESTS. SHE STATES SHE WILL SEND THE DISCHARGE LETTER AND A COPY OF THE PAIN MEDICATIONS THEY HAD APPROVED. WILL ATTACH TO THE CHART WHEN I GET VIA FAX OR EMAIL.
--- NOTE | 2019-01-06 14:10 | Diagnostic Imaging Report ---
EXAMINATION: CT scan of the chest with contrast. TECHNIQUE: Spiral CT images of the chest were performed from the lung apices to the level of the adrenal glands after the intravenous administration of 100 cc Isovue-370. Coronal and sagittal reformatted images were obtained. COMPARISON: CT chest 08/30/2017 CLINICAL HISTORY:Lung cancer DISCUSSION: LINES/TUBES: Left subclavian approach implantable cardiac device body lies within the subcutaneous fat of the prepectoral region. Leads terminate in the right atrium and at the right ventricle near the cardiac apex. LUNGS AND AIRWAYS: Mild upper lobe predominant emphysematous changes. 4 mm groundglass nodule periphery of the right upper lobe seen on series 3 image 37, unchanged. Bandlike atelectasis or scar in the right upper and middle lobes, as well as the right lower lobe, unchanged. Focal bronchiectasis in the right lower lobe has progressed relative to 08/30/2017. Bandlike atelectasis or fibrotic change in the lingula has improved relative to 08/30/2017. 5 mm solid nodule in the periphery of the left lower lobe series 3 image 60, stable. Trachea, mainstem bronchi, and central lobar and segmental bronchi are patent, without filling defects. PLEURA: No pneumothorax or pleural effusions. HEART AND MEDIASTINUM: Hypoattenuating nodule in the left thyroid is again noted. Pulmonary outflow tract is of normal caliber. No ectasia or aneurysmal dilatation of the thoracic aorta. Atherosclerotic calcification of the aortic arch, great vessel origins, and left main coronary artery. Great vessel origins are otherwise normal in caliber and configuration. No pericardial effusion. LYMPH NODES: There is no mediastinal, hilar or axillary lymphadenopathy. ABDOMEN: 1.5 cm hypoattenuating lesion in hepatic segment 2 (average internal attenuation 5-10 Hounsfield units) compatible with a simple cyst, unchanged. Otherwise, visualized portions of the liver, spleen, pancreas, adrenals, and kidneys are unremarkable. 8 mm ovoid hyperdense lesion in the region of the gastric pylorus seen on series 2 image 116. BONES AND SOFT TISSUES: No acute osseous abnormalities. Healed fractures of the right eighth through 11th posterior ribs. Diffuse osteopenia. Degenerative disc changes of the lower cervical and thoracic spine. Unchanged right hemidiaphragmatic elevation. IMPRESSION: Progression of wedge-shaped opacity with associated bronchiectasis in the right lower lobe, likely sequela of prior infection. However, follow-up CT scan of the chest with contrast in 3-6 months is suggested to document stability. Scattered bilateral pulmonary nodules measuring up to 5 mm as above. These nodules may also be assessed for stability at the time of the above recommended follow-up chest CT. Interval improvement in previously described lingular airspace opacity. Persistent bandlike atelectasis or fibrosis in the mid and lower lungs as above. 8 mm ovoid hyperdense lesion in the region of the gastric fundus is unchanged in size compared to the prior examination. Considerations include a gastric polyp or small gastrointestinal stromal tumor (GIST). Gastroenterology consultation for upper endoscopy is suggested if not recently performed. Atherosclerotic vascular disease. Complex left thyroid nodule should be further evaluated by nonemergent ultrasound. Signed by: Dr. Zenon Colon M.D. on 01/06/2019 2:07 PM
--- NOTE | 2019-01-06 14:30 | NUR ---
RECEIVED HOSPICE TERMINATION AND MEDICATION LIST FROM MELODIE TOM, PUT IN CHART WITH STICKERS ON EACH SHEET.
[2019-01-06 14:52] LABS: CREATINE KINASE MB 0.9 ng/mL (0-5.0)
[2019-01-06 16:07] VITALS: BP 105/53
--- NOTE | 2019-01-06 16:45 | NUR ---
pt notified nurse that there were 2 large round lumps on the inner and outer AC where lab previously vaibhav blood this am. assess pt's arm, there is bruising around puncture site. the lumps are normal skin tone, no pain on palpation, and they are both firm to touch. notified Dr. Sethi, recieved no new instructions/orders.
--- NOTE | 2019-01-06 18:30 | NUR ---
Dr. Márquez was at the bedside. pt stated that Dr. Márquez told her that the cancer had spread and "she only had about 3 months to live". pt is very distraught and is anxious. pt stated that she did not want any family contacted. pt expressed that she wanted to go home, explained to the pt that currently there is no hospice set up for her at home, and that Dr. Sethi and case management are working on setting up hospice with a different company, pt verbalized understanding.
[2019-01-06] MEDS ORDERED: SODIUM CHLORIDE 0.9% 50ML 50 ML ONE (18:44)
[2019-01-06] MEDS ORDERED: IOPAMIDOL 370 MG/ML 200 ML INFUS..BTL INJ ONE (18:45)
[2019-01-06 19:56] VITALS: BP 118/56
[2019-01-06 20:25] VITALS: BP 118/56
[2019-01-06] MEDS: ZOLPIDEM TARTRATE 10 MG TAB PO SCH (20:44)
--- NOTE | 2019-01-06 20:53 | NUR ---
PT IS HAVING SIVERE PAIN .NOTIFIED TO DR.HAMER DOUGLAS.RECEIVED NEW ORDERS.
[2019-01-06] MEDS: PRAVASTATIN 20 MG TAB PO SCH (20:57)
[2019-01-06] MEDS ORDERED: ALPRAZOLAM 1 MG TAB PO ONE (21:00)
[2019-01-06] MEDS ORDERED: MORPHINE SULFATE INJ 4 MG/ML INJ 1ML IV PRN (21:00)
[2019-01-07] VITALS (8 sets, daily range): BP systolic 91–107; BP diastolic 51–64
[2019-01-07] MEDS: ONDANSETRON HCL INJ 2MG/ML 2ML 2 MG/ML VIAL IV PRN ×2 (00:30→21:10)
[2019-01-07] MEDS: HYDROMORPHONE 1MG/1ML INJ IV PRN ×4 (00:30→21:10)
--- NOTE | 2019-01-07 01:18 | NUR ---
Assessment done.no resp.distress.pain voiced.refused to take pills.medicated with Dilaudid 1mg iv.bed alarm on.new iv started to right wrist.bed locked and in lowest position.phone and call light within reach.instructed to call for assistance as needed.
--- NOTE | 2019-01-07 01:33 | Consultation ---
DATE OF CONSULTATION: 01/06/2019 REQUESTING PHYSICIAN: Lexa Sethi MD. CONSULTING PHYSICIAN: Judy Márquez MD, Hematology/Oncology Service. REASON FOR CONSULTATION: Evaluation and management of the patient with lung cancer. HISTORY OF PRESENTING ILLNESS: Ms. Wray is a very pleasant 73-year-old female with known history of chronic obstructive pulmonary disease and non-small cell lung cancer, for which she was diagnosed back in 2016 when she was presented with the left upper lobe mass with paramediastinal lymphadenopathy on CT performed on October 06, 2016. She underwent a CT-guided biopsy of the left upper lobe lung mass and pathology revealed poorly differentiated carcinoma with negative EGFR mutation and ALK gene rearrangement. However, pathology revealed high expression of positive PD-L1 by immunohistochemistry. Post treatment, she received radiation treatment and since then she has been doing good. Recently, she has been under hospice care for severe pain management. She also had multiple fractures and chronic pain issues. Now, she has presented to the emergency department due to left knee and back pain. She underwent workup including CT scan of the chest revealing progression of wedge-shaped opacity in the right lower lobe. CT also demonstrated scattered bilateral pulmonary nodules measuring up to 5 mm as well as 8 mm hyperdense lesion in the region of the gastric fundus. Hematology/Oncology has been consulted to assist with the management. Presently, the patient is lying comfortably, not in acute distress, breathing normally. She stated that she has been feeling fatigue and tired. She is not able to ambulate much due to the left lower extremity pain. PAST MEDICAL HISTORY: 1. COPD. 2. Known diagnosis of bronchogenic carcinoma. 3. Multiple rib fractures. 4. Chronic pain syndrome. PAST SURGICAL HISTORY: 1. CT-guided biopsy of the lung lesion. 2. Hysterectomy. 3. Tonsillectomy. 4. Pacemaker placement in 2013. FAMILY HISTORY: Noncontributory. SOCIAL HISTORY: The patient is a former smoker. Denies alcohol use or illicit drug use. ALLERGIES: LORAZEPAM, MORPHINE, AND TRAMADOL. CURRENT MEDICATIONS: Reviewed as per medical record. REVIEW OF SYSTEMS: A 14-point review of systems is negative except as mentioned per history of presenting illness. PHYSICAL EXAMINATION: VITAL SIGNS: Reviewed as per electronic medical record. HEENT: PERRLA. Extraocular movement intact. Head is atraumatic and normocephalic. NECK: Supple. CVS: S1 and S2 audible. RESPIRATORY: Decreased bilateral air entry. ABDOMEN: Soft. Positive bowel sounds. EXTREMITIES: Moving all extremities. NEUROLOGIC: The patient is alert and awake. LABORATORY DATA: White blood cell count of 7.3, hemoglobin 14.4, hematocrit 45.3, platelets 235. BUN 11, creatinine 0.6. ASSESSMENT: Ms. Wray is a very pleasant 73-year-old female with known history of chronic obstructive pulmonary disease and poorly differentiated non-small cell lung cancer, which is PD-L1 positive, diagnosed by CT-guided biopsy of the lung lesion back in 2017, subsequently has received radiation treatment. She has been doing quite well from a lung cancer standpoint. Now, she is admitted due to progressive pain in the left lower extremity. She underwent workup as well as CT scan of the chest revealing bilateral pulmonary nodules as well as increasing in size of wedge-shaped opacity in the right lower lobe. She also developed 8 mm ovoid hyperdense lesion in the region of the gastric fundus, suspected of gastrointestinal stromal tumor. Hematology/Oncology has been consulted to assist with the management. I reviewed the records and discussed at length with the patient about her current disease and importance of further workup. At this point, recommendation would be to continue supportive care and pain management. She has had molecular studies done and positive for PD-L1, so she is a candidate for immunotherapy as recent CT scan showed slight progressive disease. I have discussed briefly the risks and benefit of treatment. PLAN: 1. Lung cancer. The patient is stable with slight progressive disease. At this point, recommendation would be to continue supportive care. She is a candidate for anti-PD-L1 therapy, which is easier and least toxic. If decided to pursue treatment, that can be easy option for her. 2. Pain. The patient has been having coetw-pr-jwcpbwp left lower extremity pain. X-ray was performed revealing degenerative changes in the knee area. The patient has been started on OxyContin 20 mg p.o. q.12 hourly along with [place] 10 mg as needed. At this point, we will continue with the current pain regimen. Baclofen will be added to the regimen as antispasmodic. We will adjust pain medication as needed. Thank you for the consult. I will continue to be available. Please call with questions. MD BABAK Wooten/SAKINA /[id number]
--- NOTE | 2019-01-07 05:00 | NUR ---
Patient did not sleep.confused at times.repositioned.diaper changed.Asking for cigarette to smoke.
--- NOTE | 2019-01-07 06:55 | NUR ---
Bed side shift report given to the oncoming Rn.stable condition.
[2019-01-07] MEDS ORDERED: CYANOCOBALAMIN INJ 1,000 MCG/ML VIAL IM ONE (08:30)
--- NOTE | 2019-01-07 08:30 | NUR ---
RECEIVED ORDER FOR HOSPICE, POKE WITH PATIENT AND GOT CHOICE FOR [facility], SIGNED AND FILED IN CHART. CALLED REP (JEF). SHE WILL LINEN KEEPER PACKET AT [facility] FROM [place]. PLAN IS TO RETURN HOME.
--- NOTE | 2019-01-07 08:35 | NUR ---
EDUCATED ABOUT IMM, SIGNED, FILED IN CHART, WITH COPY LEFT WITH FAMILY AT BEDSIDE
--- NOTE | 2019-01-07 08:41 | NUR ---
CALLED AND SPOKE WITH JOSE CRUZ, DAUGHTER JASPREET AND GRANDDAUGHTER WINSOME. ALL WERE AT THE HOUSE ON SPEAKER PHONE [phone], LET KNOW SHE CHANGED HOSPICE COMPANIES AND THAT 1 WOULD BE MAKING ARRANGEMENTS TO [employer] AND THE OTHER WOULD BE DROPPING OFF, ALL AGREED TO PLAN.
[2019-01-07] MEDS: POTASSIUM CHLORIDE 20 MEQ TAB CR PO SCH (08:50)
[2019-01-07] MEDS: FAMOTIDINE 20 MG/2 ML VIAL IV SCH ×2 (08:50→17:41)
[2019-01-07] MEDS: SENNA-S TABLET PO SCH (08:51)
[2019-01-07] MEDS: NIFEDIPINE CR 30 MG TAB PO SCH (08:51)
[2019-01-07] MEDS: METOPROLOL TARTRATE 50 MG TAB PO SCH ×2 (08:51→17:41)
[2019-01-07] MEDS: SERTRALINE HCL 100 MG TAB PO SCH ×2 (08:51→17:41)
[2019-01-07] MEDS: ALPRAZOLAM 1 MG TAB PO SCH ×2 (08:51→17:41)
--- NOTE | 2019-01-07 10:23 | NUR ---
GOT COPY OF OOH DNR FROM [facility] AND FILED IN CHART PUT WITH PACKET AND GAVE COPY TO [facility] FOR THEIR RECORDS.
--- NOTE | 2019-01-07 10:40 | Progress Note ---
DATE: SUBJECTIVE: The patient has some increased confusion during the night. Apparently, she has received some additional Demerol. She does not have fevers, but she complains of a urinary tract infection. She was seen previously by Oncology, they recommended possible immunotherapy, but she does not want this. PHYSICAL EXAMINATION: VITAL SIGNS: The patient is afebrile. The blood pressure is 107/54 and the saturation is 91%. HEENT: Shows no facial swelling or erythema. CARDIAC: Reveals regular rate and rhythm with normal S1, S2. There are no murmurs or rubs. LUNGS: Auscultation of lungs shows clear breath sounds bilaterally. There is no wheezing. ABDOMEN: Soft, nontender. There is no rebound or guarding. EXTREMITIES: Shows no leg edema or calf tenderness. IMPRESSION: 1. Metastatic bronchogenic carcinoma. 2. Metabolic encephalopathy. 3. Urinary tract infection. PLAN: 1. The patient does not want immunotherapy or any further treatment. She is requesting hospice. 2. Adjust medications to avoid worsening encephalopathy. 3. Oral antibiotics for urinary tract infection. Lexa Sethi MD LM/SAKINA /[id number]
[2019-01-07] MEDS: AMOXICILLIN 250 MG CAP PO SCH ×2 (14:03→22:00)
--- NOTE | 2019-01-07 15:10 | NUR ---
SPOKE WITH JEF FROM HOSPICE, SHE STATES THEY CAN DO THE FACE TO FACE WITH NURSE PRACT TOMORROW BETWEEN 3 AND 5, SHE WILL NEED THAT TO COMPLETE THE ADMISSION TO [facility], SHE STATES WILL ARRANGE TRANSPORT TO CHARGE HAND AT APPROX NOON TOMORROW. NOTIFIED CM AND DOCTOR.
--- NOTE | 2019-01-07 16:31 | NUR ---
PT SENT TO R1 FOR REVIEW FOR INPT STATUS.
[2019-01-07] MEDS: ZOLPIDEM TARTRATE 10 MG TAB PO SCH (20:54)
[2019-01-07] MEDS: PRAVASTATIN 20 MG TAB PO SCH (20:55)
[2019-01-08 01:17] VITALS: BP 125/58
--- NOTE | 2019-01-08 02:56 | NUR ---
Confused.not sleeping .no resp.distress.bed locked and in lowest position.phone and call light within reach.instructed to call for assistance as needed.
[2019-01-08] MEDS: AMOXICILLIN 250 MG CAP PO SCH (05:29)
--- NOTE | 2019-01-08 07:00 | NUR ---
Bed side shift report given to oncoming Rn.stable condition.
[2019-01-08 08:04] VITALS: BP 142/65
--- NOTE | 2019-01-08 08:55 | NUR ---
[facility] RECOMMENDED PT REMAIN IN OBS STATUS. [facility] WILL DO FACE TO FACE AT 12NOON TODAY. THEN PLAN DC HOME W HOSPICE.
[2019-01-08] MEDS: POTASSIUM CHLORIDE 20 MEQ TAB CR PO SCH (09:36)
[2019-01-08] MEDS: SERTRALINE HCL 100 MG TAB PO SCH (09:37)
[2019-01-08] MEDS: METOPROLOL TARTRATE 50 MG TAB PO SCH (09:37)
[2019-01-08] MEDS: NIFEDIPINE CR 30 MG TAB PO SCH (09:37)
[2019-01-08] MEDS: ALPRAZOLAM 1 MG TAB PO SCH (09:37)
[2019-01-08] MEDS: SENNA-S TABLET PO SCH (09:37)
[2019-01-08] MEDS: FAMOTIDINE 20 MG/2 ML VIAL IV SCH (09:37)
[2019-01-08] MEDS: HYDROCODONE/APAP 10MG-325MG TAB PO PRN (11:42)
[2019-01-08 11:58] VITALS: BP 124/57
--- NOTE | 2019-01-08 12:30 | NUR ---
PT DISCHARGED HOME WITH [facility], IN PLACE.
--- NOTE | 2019-01-08 20:32 | Progress Note ---
DATE: 01/08/2019 Followup Note CHIEF COMPLAINT: The patient is known with diagnosis of lung cancer, admitted due to xwmow-[id number] pain. PAST MEDICAL HISTORY: 1. COPD. 2. Known diagnosis of bronchogenic carcinoma. 3. Multiple rib fractures. 4. Chronic pain syndrome. PAST SURGICAL HISTORY: 1. CT-guided biopsy of the lung lesion. 2. Hysterectomy. 3. Tonsillectomy. 4. Pacemaker placement in 2013. PHYSICAL EXAMINATION: VITAL SIGNS: Reviewed as per electronic medical record. LABORATORY DATA: Reviewed as per electronic medical record. ASSESSMENT AND PLAN: Ms. Wray is a very pleasant 73-year-old female with known history of chronic obstructive pulmonary disease and poorly-differentiated non-small cell lung cancer, which she was diagnosed by CT-guided biopsy of the lung back in 2016. She has received radiation treatment. Apparently, due to chronic medical issues, she was enrolled in hospice. Now, she is admitted due to heeeb-zh-tolxwml pain. Her pain is improved, going to discharge her home today. MD BABAK Wooten/MODL /[id number]
== END 2019-01-08 12:30 | disposition hospice, home (50) ==
LOC: ER 15:47 → ERHOLD 17:02 → INTOOBSV 17:02 → MED/SURG3 19:56
PROVIDERS: ADMIT Internal Medicine Critical Care Medicine; ATTEND Internal Medicine Critical Care Medicine
DX: C34.32 Malignant neoplasm of lower lobe, left bronchus or lung (principal); J44.9 Chronic obstructive pulmonary disease, unspecified; M17.12 Unilateral primary osteoarthritis, left knee; G93.41 Metabolic encephalopathy; N39.0 Urinary tract infection, site not specified; G89.4 Chronic pain syndrome; M54.9 Dorsalgia, unspecified; C78.01 Secondary malignant neoplasm of right lung; M84.48XA Pathological fracture, other site, initial encounter for fracture; I11.0 Hypertensive heart disease with heart failure; I50.9 Heart failure, unspecified; F41.9 Anxiety disorder, unspecified; Z88.5 Allergy status to narcotic agent; Z88.8 Allergy status to other drugs, medicaments and biological substances; Z87.891 Personal history of nicotine dependence; Z82.49 Family history of ischemic heart disease and other diseases of the circulatory system; Z95.0 Presence of cardiac pacemaker; Z85.038 Personal history of other malignant neoplasm of large intestine; Z66 Do not resuscitate
CPT/HCPCS: 36415 ×2; 71045; 71260; 73562; 80048; 80053; 81001; 82550 ×2; 82553 ×2; 83735 ×2; 83880; 84484 ×2; 85025 ×2; 85610; 85730; 87040; 87071; 87205; 87400; 93005; 99284; G0378 ×4; J1170; J2405 ×2; J2920 ×2; Q9967

== ENCOUNTER 2020-08-15 14:22 | Emergency (ER) | payer OTHER, MEDICARE ==
[~2020-08-15] VITALS: Ht 165.1 cm; Wt 83.9 kg
[~2020-08-15 14:22] MED LIST changes: +AMBIEN10 MG PO; +BACLOFEN10 MG PO
[2020-08-15] MEDS ORDERED: ONDANSETRON HCL INJ 2MG/ML 2ML 2 MG/ML VIAL IV STA (14:58)
[2020-08-15] MEDS ORDERED: ASPIRIN 81 MG CHEW TAB PO ONE (15:00)
[2020-08-15] MEDS ORDERED: FENTANYL CITRATE/PF 100MCG/2 ML INJ IV ONE (15:00)
[2020-08-15 15:49] LABS: BASOPHILS % 0.5 % (0.0-1.0); EOSINOPHILS # (AUTO) 0.1 (0.0-0.4); EOSINOPHILS % 1.6 % (0.0-6.0); HEMATOCRIT 46.5 % (34.2-44.1); HEMOGLOBIN 14.6 g/dL (12.0-16.0); LYMPHOCYTES # (AUTO) 1.2 (1.0-3.2); LYMPHOCYTES % 16.8 % (18.0-39.1); MEAN CORPUSCULAR HGB CONC 31.4 g/dL (31-35); MEAN CORPUSCULAR VOLUME 89.1 fL (81-99); MONOCYTES # (AUTO) 0.3 (0.2-0.8); MONOCYTES % 4.6 % (4.4-11.3); NEUTROPHILS # (AUTO) 5.6 (2.1-6.9); NEUTROPHILS % 76.1 % (38.7-80.0); PLATELET COUNT 265 x10e3/uL (140-360); RED BLOOD COUNT 5.22 x10e6/uL (3.6-5.1); RED CELL DISTRIBUTION WIDTH 13.7 % (11.7-14.4)
[2020-08-15 15:54] LABS: CLARITY,URINE CLOUDY (CLEAR); COLOR,URINE YELLOW (YELLOW); KETONES,URINE NEGATIVE (NEGATIVE); LEUKOCYTE ESTERASE ,URINE MODERATE (NEGATIVE); NITRITE,URINE POSITIVE (NEGATIVE); PROTEIN,URINE DIPSTICK TRACE (NEGATIVE); URINE UROBILINOGEN 1 mg/dL (0.2 - 1)
[2020-08-15 16:00] LABS: INR 0.94; PROTHROMBIN TIME 13.1 seconds (11.9-14.5)
[2020-08-15 16:01] LABS: BACTERIA,URINE MANY /HPF; EPITHELIAL CELLS,URINE FEW /LPF; PARTIAL THROMBOPLASTIN TIME 31.6 seconds (23.8-35.5); RBC,URINE 0-5 /HPF (0-5)
[2020-08-15 16:10] LABS: ALBUMIN 3.4 g/dL (3.5-5.0); ALKALINE PHOSPHATASE 64 IU/L (40-150); ANION GAP 12.4 mmol/L (8-16); BLOOD UREA NITROGEN 9 mg/dL (7-26); BUN/CREATININE RATIO 16 (6-25); CALCIUM 8.2 mg/dL (8.4-10.2); CARBON DIOXIDE 29 mmol/L (22-29); CHLORIDE 103 mmol/L (98-107); CREATINE KINASE 13 IU/L (29-168); CREATININE, SERUM 0.56 mg/dL (0.57-1.11); EST GLOMERULAR FILTRATION RATE 106 ML/MIN (60-); GLUCOSE 89 mg/dL (74-118); POTASSIUM 3.4 mmol/L (3.5-5.1); SODIUM 141 mmol/L (136-145)
[2020-08-15 16:14] LABS: ALANINE AMINOTRANSFERASE < 6 IU/L (0-55)
[2020-08-15] MEDS ORDERED: MEROPENEM 1 GM in SODIUM CHLORIDE 0.9% 100 ML IV ONE (17:15)
[2020-08-15] MEDS ORDERED: MACROBID 100 M100 MG PO (17:21)
== END 2020-08-15 18:59 | disposition home or self-care (01) ==
LOC: ER 14:45
DX: G89.29 Other chronic pain (principal); R30.0 Dysuria; R31.9 Hematuria, unspecified; L89.152 Pressure ulcer of sacral region, stage 2; N39.0 Urinary tract infection, site not specified; C34.90 Malignant neoplasm of unspecified part of unspecified bronchus or lung; I10 Essential (primary) hypertension; I50.9 Heart failure, unspecified; J44.9 Chronic obstructive pulmonary disease, unspecified
CPT/HCPCS: 36415; 51700; 71045; 80053; 81001; 82550; 82553; 83880; 84484; 85025; 85610; 85730; 87086; 93005; 99284; J2185; J2405; J3010; J7050; 87186